=== PATIENT | female | born 1955 | race Caucasian/White ===

== ENCOUNTER → 2020-08-03 | Outpatient (CLI) | payer OTHER ==
[~2020-08-03] MED LIST: ALDACTONE25 MG PO; BASAGLAR K100 UNIT/1 SQ; BENICAR40 MG PO; COLCHICINE0.6 M1 PO; DIABETA 2.5 MG2.5 MG PO; FEOSOL325 MG PO; GLUCOPHAGE1000 MG PO; INDAPAMIDE2.5 MG PO; LOPRESSOR 25 MG25 MG PO; LOVAZA1 GM PO; MEDROL4 MG PO; MIRALAX17 GM PO; NEURONTIN 300300 MG PO; NEXIUM40 MG PO; NORCO 10-325 T1 EACH PO; NOVOLOG100 UNIT/1 SQ; PREDNISONE10 MG PO; ROXICODONE TAB 55 MG PO; SINGULAIR10 MG PO; TYLENOL 325MG325 MG PO; ULORIC 40 MG TA40 MG PO; VITAMIN B-1000 MCG/M IM; VITAMIN D 11000 UNIT PO; VITAMIN E400 UNI2 PO; XYZAL5 MG PO; ZITHROMAX250 MG PO
== END ==
LOC: KOH-I 06-28 09:30
DX: J32.0 Chronic maxillary sinusitis (principal); J34.2 Deviated nasal septum; Z98.890 Other specified postprocedural states
CPT/HCPCS: 70486

== ENCOUNTER 2021-05-16 16:45 | Emergency (ER) | payer OTHER ==
[2021-05-16 18:01] LABS: HEMOGLOBIN 14.3 gm/dl (12.3-15.3); RED BLOOD COUNT 4.33 M/UL (4.00-5.10); WHITE BLOOD COUNT 8.5 K/UL (4.5-11.0)
[2021-05-16 18:33] LABS: BUN/CREATININE RATIO 16 (0-10)
[2021-05-16] MEDS ORDERED: MEDROL DOSEPAK 24 MG PO (18:56)
== END 2021-05-16 19:46 | disposition home or self-care (01) ==
LOC: ER1 16:45
PROVIDERS: Emergency Medicine
DX: M54.12 Radiculopathy, cervical region (principal); R53.1 Weakness; I10 Essential (primary) hypertension; E11.40 Type 2 diabetes mellitus with diabetic neuropathy, unspecified
CPT/HCPCS: 70450; 72125; 80048; 82962; 83735; 85025; 93005; 99285

== ENCOUNTER → 2021-11-08 | Outpatient (CLI) | payer OTHER ==
[~2021-11-08] MED LIST changes: +MEDROL DOSEPAK 24 MG PO
== END ==
LOC: EXRD 08-28 09:30
DX: R94.5 Abnormal results of liver function studies (principal); R06.00 Dyspnea, unspecified; K76.0 Fatty (change of) liver, not elsewhere classified
CPT/HCPCS: 71046; 76700